=== PATIENT | male | born 2000 | race Caucasian/White ===

== ENCOUNTER 2021-09-20 12:50 | Day surgery (SDC) | payer OTHER ==
[~2021-09-20] VITALS: Ht 175.3 cm; Wt 68.5 kg
[~2021-09-20 12:50] MED LIST: LIDOCAINE 2% 100MG/5ML SDV (FOR ANES.) As Ordered ONE; NS 1,000 ML IV ONE; fentaNYL 100 MCG/2 ML INJECTION As Ordered ONE; propofoL 200 MG/20 ML VIAL As Ordered ONE
[2021-09-20 14:53] VITALS: BP 116/64
== END 2021-09-20 14:51 | disposition home or self-care (01) ==
LOC: M OPP 12:50
PROVIDERS: ATTEND Internal Medicine Gastroenterology
DX: K31.89 Other diseases of stomach and duodenum (principal); K21.00 Gastro-esophageal reflux disease with esophagitis, without bleeding; R12 Heartburn; R11.2 Nausea with vomiting, unspecified
CPT/HCPCS: 43239; 87428; 88305; J3010